=== PATIENT | male | born 1955 | race Hispanic/Latino ===

== ENCOUNTER 2020-04-21 17:06 | Emergency (ER) | payer OTHER ==
[~2020-04-21] VITALS: Ht 172.7 cm; Wt 91.6 kg
--- NOTE | 2020-04-21 17:15 | Emergency Department Note ---
History of Present Illnes History of Present Illness Chief Complaint: General Medicine Complaints History of Present Illness This is a 64 year old male presents to the ED for R retro-orbital OVALLE that started 04/17/20 after he recieved his Zoster shot . Since then the OVALLE radiated to his R malar region and progressed to his R submandibular region. Denies visual changes or n/v. Denies fevers and n/v . Historian: Patient Arrival Mode: Car Onset (how long ago): day(s) Radiation: Reports non-radiation Severity: moderate Onset quality: sudden Duration (how long): day(s) (4) Timing of current episode: constant Progression: worsening Chronicity: new Context: Reports new medications; Denies recent illness Relieving factors: none Exacerbating factors: none Associated symptoms: Reports malaise Treatments prior to arrival: none Past Medical/Family History Physician Review I have reviewed the patient's past medical and family history. Any updates have been documented here. Past Medical History Recent Fever: No Clinical Suspicion of Infectio: No New/Unexplained Change in Ment: Yes Past Medical History: Diabetes Other Medical History: Psoriasis Social History Smoking Cessation: Never Smoker Any Illegal Drug Use: No Review of Systems Review of Systems Constitutional: Reports no symptoms EENTM: Reports no symptoms Cardiovascular: Reports no symptoms Respiratory: Reports no symptoms Gastrointestinal: Reports no symptoms Genitourinary: Reports no symptoms Musculoskeletal: Reports no symptoms Integumentary: Reports no symptoms Neurological: Reports headache; Denies numbness, Denies paresthesia, Denies pre-existing deficit, Denies seizure, Denies tingling, Denies tremors Psychological: Reports no symptoms Endocrine: Reports no symptoms Hematological/Lymphatic: Reports no symptoms Physical Exam Related Data Triage Vital Signs Vital Signs Date Time Temp Pulse Resp B/P (MAP) Pulse Ox O2 Delivery O2 Flow Rate FiO2 04/21/20 17:11 97.2 98 18 175/98 99 Room Air Vital signs reviewed: Yes Physical Exam CONSTITUTIONAL Constitutional: Present well-developed, Present well-nourished HENT HENT: Present normocephalic, Present atraumatic, Present oropharynx clear/moist, Present nose normal, Present other (TTP R maxillary sinus) HENT L/R: Present left ext ear normal, Present right ext ear normal EYES Eyes: Reports PERRL, Reports conjunctivae normal NECK Neck: Present ROM normal PULMONARY Pulmonary: Present effort normal, Present breath sounds normal CARDIOVASCULAR Cardiovascular: Present regular rhythm, Present heart sounds normal, Present capillary refill normal, Present normal rate GASTROINTESTINAL Abdominal: Present soft, Present nontender, Present bowel sounds normal GENITOURINARY Genitourinary: Present exam deferred SKIN Skin: Present warm, Present dry MUSCULOSKELETAL Musculoskeletal: Present ROM normal NEUROLOGICAL Neurological: Present alert, Present oriented x 3, Present no gross motor or sensory deficits PSYCHOLOGICAL Psychological: Present mood/affect normal, Present judgement normal Results Imaging Imaging results reviewed: Yes Impressions [facility] [address] [place] [address] Patient Name: RD CHAPMAN MR #: [id number] : 1955 Age/Sex: 64/M Req #: [id number] Adm Physician: Ordered by: FINESSE MEEKS DO Report #: [id number] Location: ER Room/Bed: Procedure: [id number] CT/CT BRAIN WO Exam Date: 04/21/20 Exam Time: 1720 REPORT STATUS: Signed CT BRAIN WO HISTORY: Headache COMPARISON: None. TECHNIQUE: Noncontrast axial scans were obtained from skull base to the vertex. Coronal and sagittal reconstructions obtained from the axial data. One or more of the following dose reduction techniques were used: Automated exposure control, adjustment of the mA and/or kV according to patient size, and/or utilization of iterative reconstruction technique. DISCUSSION: Scalp/Skull: Unremarkable. Brain sulci: Mildly prominent Ventricles: Compensatory dilatation. Extra-axial spaces: No masses or fluid collections. Carotid siphon calcifications are present. Parenchyma: No abnormal densities. No mass, hemorrhage, or large vascular territory acute infarct. Dural sinuses: No abnormal densities. Sellar/Suprasellar region: Intact. Skull base: Intact. Incidental findings: Moderate diffuse right nasal cavity and paranasal sinus mucosal thickening is present. The right maxillary sinus and middle meatus are nearly completely opacified. IMPRESSION: 1. No acute intracranial abnormalities. 2. Mild generalized cerebral volume loss. 3. Nonspecific moderate diffuse right nasal cavity and paranasal sinus mucosal thickening. Correlate for sinusitis. Signed by: Dr. Kumar Healy M.D. on 04/21/2020 6:17 PM Dictated By: KUMAR HEALY MD 16 Transcribed By: SANDEEP on 04/21/201816 COPY TO: FINESSE MEEKS DO~ Procedures 12 Lead ECG Interpretation ECG Interpretation : ECG: ECG 1 Creative Art Director: Interpreted by ED physician Date: Apr 21, 2020 Time: 17:41 Prior ECG tracings: reviewed Rhythm: sinus rhythm Rate: normal BPM: 88 QRS axis: normal ST segments normal: Yes T waves normal: Yes Clinical Impression: normal ECG Assessment & Plan Medical Decision Making MDM 64 yom presents with unilateral Right sided OVALLE Frontal region. Diagnosis considered is Shingles, Sinusitis, SKull fx, migraine OVALLE, SAH, SDH, Epidural OVALLE, ACS Assessment & Plan Final Impression: (1) Sinusitis Depart Disposition: HOME, SELF-CARE Last Vital Signs Date Time Temp Pulse Resp B/P (MAP) Pulse Ox O2 Delivery O2 Flow Rate FiO2 04/21/20 17:48 98.4 90 16 131/93 98 Room Air Medications in the ED Ketorolac Tromethamine 60 mg ONCE IM Last administered on 04/21/20at 17:47; Admin Dose 60 MG; Start 04/21/20 at 17:30; Stop 04/22/20 at 00:53; Status DC FINESSE MEEKS DO Apr 21, 2020 17:15
[2020-04-21] MEDS ORDERED: KETOROLAC TROMETHAMINE 60 MG/2 ML VIAL IM NR (17:30)
--- NOTE | 2020-04-21 18:20 | Diagnostic Imaging Report ---
CT BRAIN WO HISTORY: Headache COMPARISON: None. TECHNIQUE: Noncontrast axial scans were obtained from skull base to the vertex. Coronal and sagittal reconstructions obtained from the axial data. One or more of the following dose reduction techniques were used: Automated exposure control, adjustment of the mA and/or kV according to patient size, and/or utilization of iterative reconstruction technique. DISCUSSION: Scalp/Skull: Unremarkable. Brain sulci: Mildly prominent Ventricles: Compensatory dilatation. Extra-axial spaces: No masses or fluid collections. Carotid siphon calcifications are present. Parenchyma: No abnormal densities. No mass, hemorrhage, or large vascular territory acute infarct. Dural sinuses: No abnormal densities. Sellar/Suprasellar region: Intact. Skull base: Intact. Incidental findings: Moderate diffuse right nasal cavity and paranasal sinus mucosal thickening is present. The right maxillary sinus and middle meatus are nearly completely opacified. IMPRESSION: 1. No acute intracranial abnormalities. 2. Mild generalized cerebral volume loss. 3. Nonspecific moderate diffuse right nasal cavity and paranasal sinus mucosal thickening. Correlate for sinusitis. Signed by: Dr. Kumar Healy M.D. on 04/21/2020 6:17 PM
== END 2020-04-21 19:01 | disposition home or self-care (01) ==
LOC: ER 17:11
DX: J32.9 Chronic sinusitis, unspecified (principal); R51 Headache; E11.9 Type 2 diabetes mellitus without complications; L40.9 Psoriasis, unspecified
CPT/HCPCS: 70450; 93005; 99284; J1885